=== PATIENT | female | born 1995 | race Caucasian/White ===

== ENCOUNTER 2016-09-16 22:10 | Outpatient (CLI) | payer MEDICAID ==
[2016-10-26] MEDS ORDERED: NIPPLECREAM TP (17:47)
[2016-10-26] MEDS ORDERED: NORCO 5-325 TA1 EACH PO (17:47)
[2016-10-26] MEDS ORDERED: PRENATAL VIT1 TAB PO (17:47)
[2016-10-26] MEDS ORDERED: MOTRIN-DPS800 MG PO (17:47)
== END 2016-09-17 00:03 | disposition home or self-care (01) ==
LOC: 2LDRP 22:10 → BC 22:10 → ER 22:10
DX: O36.8130 Decreased fetal movements, third trimester, not applicable or unspecified (principal); O99.89 Other specified diseases and conditions complicating pregnancy, childbirth and the puerperium; R10.9 Unspecified abdominal pain; Z3A.32 32 weeks gestation of pregnancy

== ENCOUNTER 2016-09-28 12:00 | Outpatient (CLI) | payer MEDICAID ==
[2016-10-26] MEDS ORDERED: NIPPLECREAM TP (17:47)
[2016-10-26] MEDS ORDERED: PRENATAL VIT1 TAB PO (17:47)
[2016-10-26] MEDS ORDERED: NORCO 5-325 TA1 EACH PO (17:47)
[2016-10-26] MEDS ORDERED: MOTRIN-DPS800 MG PO (17:47)
== END 2016-09-28 13:25 | disposition home or self-care (01) ==
LOC: WOR 12:00 → BC 12:00 → 2LDRP 12:00 → BC 13:25 → WOR 09-30 13:15 → 2LDRP 09-30 13:15 → WOR 09-30 14:20 → BC 09-30 14:20
DX: O42.913 Preterm premature rupture of membranes, unspecified as to length of time between rupture and onset of labor, third trimester (principal); Z3A.33 33 weeks gestation of pregnancy

== ENCOUNTER 2016-10-06 14:10 | Observation (INO) | payer MEDICAID ==
--- NOTE | 2016-10-24 09:27 | HP ---
ADMIT: 10/06/2016 RM/LOC: 219 [facility] MR#: [id number] 2620 [facility] [address] [place], [place] [id number] JAYLIN CARROLL [address] [place] [address] History and Physical SEX: F AGE: 21 : 1995 DATE OF SERVICE: CHIEF COMPLAINT: Uterine contractions. HISTORY OF PRESENT ILLNESS: This is a 21-year-old female 4, para 3, who [facility] with complaints of uterine contractions and possible loss of fluid. Her has been complicated by her young age as well as short interval between pregnancies, late entry to care and asthma. Her estimated date of confinement is 11/10/2016 that is based off last menstrual period and consistent with an 8-week ultrasound done at the [facility]. At the time of initial evaluation, she was noted to be eliot every 3 to 4 minutes and these were increasing in intensity. PAST OBSTETRICAL HISTORY: She has had three spontaneous vaginal deliveries at term. LABORATORY DATA: Blood type is O negative. Antibody screen negative, hepatitis B surface antigen negative, RPR nonreactive, rubella immune. HIV negative. Gonorrhea chlamydia is negative. Quad screen is normal. Diabetic screen 132. Group B Strep is unknown. PAST MEDICAL HISTORY: She denies hypertension, diabetes, asthma, kidney, or thyroid disease. PAST SURGICAL HISTORY: Cholecystectomy in 2012. SOCIAL HISTORY: She denies tobacco, alcohol, or drug use. ALLERGIES: NO KNOWN DRUG ALLERGIES. CURRENT MEDICATIONS: vitamins. PHYSICAL EXAMINATION: VITAL SIGNS: Temperature is 99.1, blood pressure 110/66, pulse 113, and respirations 20. GENERAL: This is a pleasant female, uncomfortable, but not in any acute distress. HEENT: Head is normocephalic and atraumatic. Pupils are equal, round, and reactive to light and accommodation. Extraocular muscles are intact. NECK: Supple. HEART: Regular rate and rhythm. LUNGS: Clear bilaterally. ABDOMEN: Soft, nontender, nondistended, and gravid. EXTREMITIES: Nontender. heart tones are 130s baseline. Moderate variability is present, 15 x 15 accelerations are present and decelerations are absent. Uterine contractions every 3 to 5 minutes. Her cervix is 3 cm, 50% effaced, -2 station. Fetus is vertex. Estimated weight is 5 pounds. Repeat cervical examination showed her cervix to be 3, extremely posterior and difficult to reach all the ADMIT: 10/06/2016 RM/LOC: 219 [facility] MR#: [id number] [address] [id number] [address], [place] [address] History and Physical SEX: F AGE: 21 : 1995 [address] IMPRESSION: 1. This is a 21-year-old female, 4, para 3, with an intrauterine at 35 weeks gestation. 2. Threatened labor. 3. Group B Streptococcus, unknown. PLAN: At this time, we will gather group B strep culture. We will start IV fluids and continue close observation. Should she make any cervical change, we will start antibiotics for GBS prophylaxis. At this time, given the possibility of delivery, we will administer steroids, betamethasone 12.5 mg IM x1 now and repeat this in 24 hours if she is undelivered. Ultrasound did confirm vertex presentation, so if she labors, we will anticipate a spontaneous vaginal delivery. Beba Armijo MD/ michelle JOB #: [id number] CC: Beba Armijo, Attending Physician Beba Armijo, Family Physician
[2016-10-26] MEDS ORDERED: PRENATAL VIT1 TAB PO (17:47)
[2016-10-26] MEDS ORDERED: NIPPLECREAM TP (17:47)
[2016-10-26] MEDS ORDERED: MOTRIN-DPS800 MG PO (17:47)
[2016-10-26] MEDS ORDERED: NORCO 5-325 TA1 EACH PO (17:47)
== END 2016-10-07 17:02 | disposition home or self-care (01) ==
LOC: BC 14:10 → 2LDRP 14:10 → BC 17:00 → 2LDRP 17:00 → BC 11-10 08:00
PROVIDERS: ADMIT Obstetrics & Gynecology
DX: O60.03 Preterm labor without delivery, third trimester (principal); Z3A.34 34 weeks gestation of pregnancy; Z90.49 Acquired absence of other specified parts of digestive tract

== ENCOUNTER 2016-10-13 18:50 | Outpatient (CLI) | payer MEDICAID ==
[2016-10-26] MEDS ORDERED: PRENATAL VIT1 TAB PO (17:47)
[2016-10-26] MEDS ORDERED: NORCO 5-325 TA1 EACH PO (17:47)
[2016-10-26] MEDS ORDERED: MOTRIN-DPS800 MG PO (17:47)
[2016-10-26] MEDS ORDERED: NIPPLECREAM TP (17:47)
== END 2016-10-13 20:35 | disposition home or self-care (01) ==
LOC: 2LDRP 18:50 → BC 18:50
DX: O42.913 Preterm premature rupture of membranes, unspecified as to length of time between rupture and onset of labor, third trimester (principal); Z3A.36 36 weeks gestation of pregnancy

== ENCOUNTER 2016-10-24 05:00 | Inpatient (IN) | payer MEDICAID ==
[~2016-10-24] VITALS: Ht 152.4 cm; Wt 76.2 kg
--- NOTE | ~2016-10-24 | FD ---
ADMIT: 10/24/2016 RM/LOC: 221 [facility] MR#: [id number] [address] [facility] [address] [place] [id number] JAYLIN CARROLL [address] [place] [address] Final Diagnosis SEX: F AGE: 21 : 1995 ADMISSION DATE: 10/24/2016 DISCHARGE DATE: 10/25/2016 FINAL DIAGNOSIS: Status post spontaneous vaginal delivery at term. PROCEDURE: 10/24/2016 spontaneous vaginal delivery with delivery of a viable male, 5 pounds 14 ounces, Apgars 8 and 9. Beba Armijo MD/ milagros JOB #: [id number] CC: Beba Armijo MD, Attending Physician Beba Armijo MD, Family Physician
--- NOTE | ~2016-10-24 | HP ---
ADMIT: 10/24/2016 RM/LOC: 221 [facility]#: [id number] [id number] 2620 [facility] [address] [place] [phone] JAYLIN CARROLL [address] [place] [address] History and Physical SEX: F AGE: 21 : 1995 DATE OF SERVICE: CHIEF COMPLAINT: Uterine contractions. HISTORY OF PRESENT ILLNESS: This is a 21-year-old female, 4, para 3, who presents to the [facility] with an intrauterine at 37-4/7th weeks' gestation with estimated date of confinement of 11/10/2016. Her estimated date of confinement is based off last menstrual period and consistent with an 8-week ultrasound. She presents to the [facility] with complaints of uterine contractions, increasing in frequency and intensity. Her has been complicated by young maternal age, short interval between pregnancies, late entry, and asthma. Her asthma has been controlled without medications. She additionally did have an abnormal 1-hour glucose tolerance test with a normal 3-hour glucose tolerance test. At the time of initial evaluation, she was noted to be 4 cm and did experience spontaneous rupture of membranes shortly after that, she is therefore admitted for labor. PAST MEDICAL HISTORY: She does have a history of asthma and depression. She denies hypertension, diabetes, kidney or thyroid disease. PAST SURGICAL HISTORY: Cholecystectomy in 2012. SOCIAL HISTORY: She denies tobacco, alcohol, or drug use. Father of the baby is involved. PAST OBSTETRICAL HISTORY: She has had 3 term spontaneous vaginal deliveries. Her first baby weighed 7 pounds, 7 ounces. Her 2nd baby weighed 7 pounds. Her 3rd baby weighed 6 pounds, 15 ounces. ALLERGIES: NO KNOWN DRUG ALLERGIES. CURRENT MEDICATIONS: vitamins. LABORATORY DATA: Blood type is O negative. Antibody screen negative. Hepatitis B surface antigen negative. RPR nonreactive. Rubella immune. HIV negative. Quad screen was normal. Gonorrhea and Chlamydia negative. Diabetic screen 132. Three-hour glucose tolerance test 83, 119, 99, 92. Group B strep is positive. PHYSICAL EXAMINATION: VITAL SIGNS: Temperature is 96.8, blood pressure is 106/67, pulse 101, respirations 16. GENERAL: This is a pleasant female, in no acute distress, but uncomfortable with contractions. HEENT: Head is normocephalic, atraumatic. Pupils are equal, round, react to light and accommodation. Extraocular muscles are intact. NECK: Supple. HEART: Regular rate and rhythm. LUNGS: Clear bilaterally. ADMIT: 10/24/2016 RM/LOC: 221 [facility] MR#: [id number] [address] [id number] [facility] [address] [place] [address] History and Physical SEX: F AGE: 21 : 1995 ABDOMEN: Soft, nontender, nondistended. Gravid. EXTREMITIES: Nontender. heart tones are 130s baseline, moderate variability is present, 15 x 15 accelerations are present. Decelerations are absent. Uterine contractions are every 2 to 5 minutes. Her cervix is 4 cm, 60%, -2 station. Fetus is vertex. Estimated weight is 7.5 pounds. IMPRESSION: 1. This is a 21-year-old female, 4, para 3, with an intrauterine at 37-4/7th weeks' gestation in labor. 2. Group B Streptococcus positive. PLAN: At this time, we will admit the patient for labor. We will start antibiotics for GBS prophylaxis, augment if needed, and anticipate a spontaneous vaginal delivery. Beba Armijo MD/ michelle JOB #: [id number] CC: Beba Armijo, Attending Physician Beba Armijo, Family Physician
[2016-10-26] MEDS ORDERED: NIPPLECREAM TP (17:47)
[2016-10-26] MEDS ORDERED: MOTRIN-DPS800 MG PO (17:47)
[2016-10-26] MEDS ORDERED: NORCO 5-325 TA1 EACH PO (17:47)
[2016-10-26] MEDS ORDERED: PRENATAL VIT1 TAB PO (17:47)
--- NOTE | 2016-11-25 22:12 | OR ---
ADMIT: 10/24/2016 RM/LOC: 221 [facility] MR#: [id number] 2620 [facility] [address] [place] [phone] JAYLIN CARROLL [address] [place] [address] Operative/Delivery Room Report SEX: F AGE: 21 : 1995 SURGERY DATE: 10/24/2016 SURGEON: Beba Armijo MD PREOPERATIVE DIAGNOSES: 1. Intrauterine at 37 and 4/7th weeks' gestation. 2. Active labor. 3. Group B streptococcus positive. POSTOPERATIVE DIAGNOSIS: 1. Intrauterine at 37 and 4/7th weeks' gestation. 2. Active labor. 3. Group B streptococcus positive. 4. Delivery of a viable male infant at 1225 hours weighing 5 pounds 14.5 ounces with Apgars of 8 at 1 minute, 9 at five minutes. PROCEDURE: Spontaneous vaginal delivery. ANESTHESIA: None. COMPLICATIONS: None. ESTIMATED BLOOD LOSS: 100 mL. FLUIDS: Crystalloid. INDICATIONS: This is a 21-year-old female, 4, para 3, who [facility] with an intrauterine at 37 and 4/7th weeks' gestation in active labor. Her is complicated by young maternal age, short interval between pregnancies, and abnormal 1-hour glucose tolerance test with a normal 3-hour glucose tolerance test. She did require Pitocin augmentation. She was started on antibiotics for GBS prophylaxis. She progressed to be complete in a satisfactory fashion at which time, she was allowed to push bringing the 's vertex to the perineum. DESCRIPTION OF PROCEDURE: The patient was noted to be complete and pushing and at the time that I arrived. The perineum was supported, the infant's vertex was delivered. There was a nuchal cord. The anterior ADMIT: 10/24/2016 RM/LOC: 221 [facility] MR#: [id number] 2620 [facility] [address] [place] [phone] [place] [address] Operative/Delivery Room Report SEX: F AGE: 21 : 1995 posterior shoulders and the remainder of the infant were quickly delivered through this. The infant did have spontaneous cry and movement of all 4 extremities. He was passed to the mother's abdomen, where nursing personnel were in attendance. She was then placed in the dorsal lithotomy position and prepped and draped in usual sterile fashion. After 1 minute, the cord was clamped x2 and cut. Twenty units of Pitocin were infused with IV fluids to help firm the uterus. The placenta delivered intact spontaneously. The uterus was not explored. Examination of the cervix and vaginal vault did not reveal any lacerations. Examination of the perineum did not reveal any lacerations. The patient tolerated the procedure well. Sponge, needle, and instrument counts were correct. The patient did recover in her Labor and Delivery suite with her infant. Beba Armijo MD/ michelle JOB #: [id number] CC: Beba Armijo, Attending Physician Beba Armijo, Family Physician
== END 2016-10-25 14:50 | disposition home or self-care (01) | DRG 775 ==
LOC: BC 05:00 → 2LDRP 05:00 → BC 11-10 11:31
PROVIDERS: ADMIT Obstetrics & Gynecology
PROC: 3E0234Z Introduction of Serum, Toxoid and Vaccine into Muscle, Percutaneous Approach (ICD-10-PCS; principal; 2016-10-24)
PROC: 10E0XZZ Delivery of Products of Conception, External Approach (ICD-10-PCS; principal; 2016-10-24)
DX: O99.824 Streptococcus B carrier state complicating childbirth (principal); J45.909 Unspecified asthma, uncomplicated; O69.81X0 Labor and delivery complicated by cord around neck, without compression, not applicable or unspecified; O75.89 Other specified complications of labor and delivery; O99.52 Diseases of the respiratory system complicating childbirth; Z3A.37 37 weeks gestation of pregnancy; Z37.0 Single live birth